=== PATIENT | male | born 1950 | race Caucasian/White ===

== ENCOUNTER → 2025-07-16 | Outpatient (CLI) | payer OTHER ==
--- NOTE | 2025-07-16 14:30 | NUR ---
MBSS COMPLETED (OUTPATIENT). No aspirations. Deep non-transient penetrations after the swallow with thin liquids via cup sip with no cough response. RECOMMEND: easy to chew solids, thin liquids (small, single sips), and pills 1 per swallow with small sips or crushed with pureed. COMPENSATORY STRATEGIES: 1. sit upright during oral intake 2. small and single sips 3. slow oral intake 4. NO STRAWS 5. extra dry swallows DIAGNOSTIC FINDINGS: Pt presented with mild pharyngeal dysphagia characterized by decreased tongue base retraction; delayed pharyngeal response trigger and decreased hyo-laryngeal elevation/excursion evidenced by residue on base of tongue and valleculae cleared with extra dry swallows; resulting in deep non-transient penetrations after the swallow with thin liquids via cup sip with no cough response; small and single sips effective in eliminating penetrations. Pt noted with abnormal curvature of the spine at C3 level with enlarged tissue posteriorly possibly affecting the swallowing. NOTE: Pt with open trach stoma and on 2LO2 via NC. EMAIL MARKETING EXECUTIVE reviewed results and recommendations with patient. EMAIL MARKETING EXECUTIVE educated patient on risks and consequences of aspiration. Speech therapy not warranted at this time. Mild pharyngeal dysphagia best managed with compensatory strategies. All questions answered. Addendum: 07/17/[address] [facility] Amended: Links added.
--- NOTE | 2025-07-18 14:07 | HMCIMG ---
MODIFIED BARIUM SWALLOW W CINE REASON: Dysphagia, unspecified; Gastro-esophageal reflux disease without esophagiti FINDINGS: Fluoroscopic assistance was provided to the speech pathologist while performing examination. For findings and dietary recommendations, refer to speech pathologist's report. FLUORO TIME: Not provided IMPRESSION: Modified barium swallow as described.
== END | disposition home or self-care (01) ==
LOC: RAH 11:49
PROVIDERS: ATTEND Otolaryngology
DX: K21.9 Gastro-esophageal reflux disease without esophagitis (principal); R13.10 Dysphagia, unspecified
CPT/HCPCS: 74230; 92611

== ENCOUNTER → 2025-09-04 | Outpatient (CLI) | payer OTHER ==
--- NOTE | 2025-09-04 19:04 | HMCIMG ---
EXAM: MAGNETIC RESONANCE IMAGING OF THE LUMBAR SPINE WITHOUT INTRAVENOUS CONTRAST Technique: Multiplanar, multisequence magnetic resonance imaging of the lumbar spine was performed without intravenous contrast using sagittal T1-weighted, sagittal T2-weighted, sagittal short tau inversion recovery, and axial T2-weighted and T1-weighted sequences through the intervertebral disc levels. Imaging was reviewed in multiple planes. For level assignment, the most inferior normal-diameter disc space is designated L5???S1. Plain radiographs are recommended to confirm vertebral numbering prior to any procedure. Clinical Information: M54.50 low back pain, unspecified. Findings: There are no vertebral body compression deformities. There are multilevel endplate osteophytic spurs. Intervertebral discs show diffuse desiccation. Physiologic lumbar lordosis is maintained without spondylolisthesis. Bone marrow signal is within normal limits without reconversion or focal lesion. The conus medullaris terminates at the L1 level and appears normal in signal and caliber. Paraspinal soft tissues are unremarkable without edema. No transitional vertebral body is identified. L1???2: Moderate circumferential disc bulge effaces the ventral thecal sac. Facet arthropathy and ligamentum flavum hypertrophy are present. No central canal stenosis. Moderate bilateral neural foraminal stenosis. L2???3: Moderate broad-based posterior disc bulge effaces the ventral thecal sac. Facet arthropathy and ligamentum flavum hypertrophy are present. No central canal stenosis. Moderate to severe bilateral neural foraminal stenosis with impingement of the exiting nerve roots. L3???4: Diffuse circumferential disc bulge effaces the ventral thecal sac. Facet arthropathy and ligamentum flavum hypertrophy are present. No central canal stenosis. Severe bilateral neural foraminal stenosis with impingement of the exiting nerve roots. L4???5: Diffuse circumferential posterior disc bulge effaces the ventral thecal sac. Facet arthropathy and ligamentum flavum hypertrophy are present with a small right facet joint effusion. Mild central canal stenosis. Severe bilateral neural foraminal stenosis with impingement of the exiting nerve roots. L5???S1: Diffuse circumferential disc bulge with a linear high T2-weighted signal within the annulus consistent with an annular fissure; the ventral thecal sac is indented. Facet arthropathy and ligamentum flavum hypertrophy are present. No central canal stenosis. Severe bilateral neural foraminal stenosis with impingement of the exiting L5 nerve roots.IMPRESSION: 1. Multilevel lumbar spondylosis with disc bulges, facet arthropathy, and ligamentum flavum hypertrophy, most severe at L3-4, L4-5, and L5-S1. 2. Severe bilateral neural foraminal stenosis with nerve root impingement at L3-4, L4-5, and L5-S1 levels. 3. Moderate to severe bilateral neural foraminal stenosis with nerve root impingement at L2-3. 4. Moderate bilateral neural foraminal stenosis at L1-2. 5. Mild central canal stenosis at L4-5. 6. Annular fissure at L5-S1. 7. Small right facet joint effusion at L4-5. 8. Diffuse disc desiccation throughout the lumbar spine. 9. No vertebral body compression deformities or spondylolisthesis. 10. Normal conus medullaris terminating at L1 level. /[place]
== END | disposition home or self-care (01) ==
LOC: RAH 10:50
PROVIDERS: ATTEND Podiatrist
DX: M47.817 Spondylosis without myelopathy or radiculopathy, lumbosacral region (principal); M48.07 Spinal stenosis, lumbosacral region; M51.A3 Intervertebral annulus fibrosus defect, lumbosacral region, unspecified size; M51.360 Other intervertebral disc degeneration, lumbar region with discogenic back pain only; M51.370 Other intervertebral disc degeneration, lumbosacral region with discogenic back pain only; M25.78 Osteophyte, vertebrae; M51.87 Other intervertebral disc disorders, lumbosacral region
CPT/HCPCS: 72148